=== PATIENT | female | born 1995 | race Caucasian/White ===

== ENCOUNTER 2016-08-14 17:59 | Emergency (ER) | payer OTHER ==
[2016-08-14 17:59] VITALS: BMI 23.8
[2016-08-14 18:05] VITALS: TEMP 98.5
[2016-08-14 18:38] LABS: RBC URINE 3 /hpf (0-3); URINE BACTERIA RARE (<OCC); URINE BILIRUBIN NEGATIVE (NEGATIVE); URINE BLOOD NEGATIVE (NEGATIVE); URINE COLOR Yellow (YELLOW); URINE GLUCOSE (UA) NORMAL (Normal); URINE KETONE NEGATIVE (NEGATIVE); URINE LEUKOCYTE ESTERASE NEG Leu/uL (Negative); URINE PROTEIN NEGATIVE (NEGATIVE); URINE UROBILINOGEN NORMAL mg/dL (0.2-1.0); WBC URINE 1 /hpf (0-5)
[2016-08-14] MEDS ORDERED: cefTRIAXone (Rocephin) 250 mg Inj IM STA (18:54)
--- NOTE | 2016-08-14 18:56 | C.PDOC ---
History Of Present Illness 20 yr old female presents to the ER requesting evaluation after was exposed to chlamydia infection. Patient states her partner was tested positive for chlamydia infection today. Denies any active complaints at present time, denies fever, chills, sore throat, drooling, rash, abd. pain, nausea, vomiting, dysuria , hematuria, vaginal irritation or discharge. Ambulate to Ed for evaluation, not in any apparent distress.. Time Seen by Provider: 08/14/16 18:27 Chief Complaint (Nursing): Female Genitourinary History Per: Patient History/Exam Limitations: no limitations Onset/Duration Of Symptoms: Unknown Current Symptoms Are (Timing): Still Present Past Medical History Reviewed: Historical Data, Nursing Documentation, Vital Signs Vital Signs: Last Vital Signs Temp 98.5 F 08/14/16 18:02 Pulse 75 08/14/16 18:02 Resp 20 08/14/16 18:02 BP 123/77 08/14/16 18:02 Pulse Ox Family History: States: No Known Family Hx - Social History Hx Tobacco Use: No Hx Alcohol Use: No Hx Substance Use: No - Immunization History Hx Tetanus Toxoid Vaccination: No Hx Influenza Vaccination: No Hx Pneumococcal Vaccination: No Review Of Systems Except As Marked, All Systems Reviewed And Found Negative. Constitutional: Negative for: Fever Cardiovascular: Negative for: Chest Pain Respiratory: Negative for: Shortness of Breath Gastrointestinal: Negative for: Nausea, Vomiting Genitourinary: Negative for: Dysuria, Hematuria Physical Exam - Physical Exam Appears: Well, Non-toxic, No Acute Distress Skin: Warm, Dry, No Rash Oral Mucosa: Moist Tongue: No Lesions Throat: No Erythema, No Exudate, No Drooling Neck: Supple Cardiovascular: No Murmur Gastrointestinal/Abdominal: Soft, No Tenderness, No Distention, No Guarding Pelvic: No Vaginal Bleeding, No Vaginal Discharge, No Cervical Motion Tenderness , No Adnexal Tenderness Extremity: No Deformity, No Swelling Neurological/Psych: Oriented x3, Normal Speech ED Course And Treatment - Laboratory Results Urine POC: Negative Progress Note: On re-evaluation, pt is afebrile, hemodynamicaly stable. Non- toxic. Tolerate PO well in ED. ENT: no acute findings. Abd: benign. Back: (- ) CVA tenderness. exam normal. UA results review and appears normal. Pt was treated for STD. Pt advised and encourage to treat partner(s), ref. to F/u with BEHAVIORAL CONSULTANT 2-3 days for re-eval. return if any new changes. Medical Decision Making Medical Decision Making: PLAN: * GC Chlamydia * HCG * Urinalysis * Zithromycin PO * Rocephin IM Disposition Counseled Patient/Family Regarding: Studies Performed, Diagnosis, Need For Followup, Rx Given - [facility]position [facility] Disposition: HOME/ ROUTINE Disposition Time: 18:54 Condition: STABLE Additional Instructions: Encourage partner(s) to be checked and treated Follow up with BEHAVIORAL CONSULTANT In 2-3 days for re-evaluation and re-testing. return if any new changes. Instructions: Sexually Transmitted Diseases (ED), Safe Sex (ED) Print Language: GERMAN - Clinical Impression Clinical Impression: STD (sexually transmitted disease) - PA / [employer] / Resident Statement MD/DO has reviewed & agrees with the documentation as recorded. - Scribe Statement The provider has reviewed the documentation as recorded by the Scribe Maia Bui All medical record entries made by the Rosinaibeunice were at my direction and personally dictated by me. I have reviewed the chart and agree that the record accurately reflects my personal performance of the history, physical exam, medical decision making, and the department course for this patient. I have also personally directed, reviewed, and agree with the discharge instructions and disposition.
[2016-08-14 19:36] VITALS: BP 120/71; PULSE 71; RESP 18; O2SAT 98
== END 2016-08-14 19:36 | disposition home or self-care (01) ==
LOC: C.ER 17:59
DX: A64 Unspecified sexually transmitted disease (principal)
CPT/HCPCS: 81001; 84703; 87086; 87491; 87591; 96372; 99284; J0696